=== PATIENT | male | born 1970 | race Caucasian/White ===

== ENCOUNTER 2020-04-09 08:17 | Emergency (ER) | payer MEDICARE, OTHER ==
[~2020-04-09] VITALS: Ht 175.3 cm; Wt 89.4 kg
[2020-04-09] MEDS ORDERED: OXYCODONE HCL5 MG (08:39)
== END 2020-04-09 11:06 | disposition home or self-care (01) ==
LOC: ED 08:17
DX: S39.012A Strain of muscle, fascia and tendon of lower back, initial encounter (principal); X58.XXXA Exposure to other specified factors, initial encounter; Z79.891 Long term (current) use of opiate analgesic
CPT/HCPCS: 72100; 81001; 96374; 99283-25; J1100; J1885